=== PATIENT | male | born 1990 | race American Indian/Alaskan Native ===

== ENCOUNTER 2021-08-06 18:03 | Emergency (ER) | payer SELFPAY ==
--- NOTE | 2021-08-06 20:07 | Emergency Department Report ---
- General Chief complaint: Skin Rash Stated complaint: ABD PAIN Time Seen by Provider: 08/06/21 19:56 Source: patient Mode of arrival: Ambulatory Limitations: No Limitations - History of Present Illness Initial comments: Patient is a 31-year-old male presents emergency room with complaints of a diffuse pruritic rash that has been ongoing for several months. He reports he recently moved here from [place]. He states that he saw a manufacturing controls engineer in [place] and was advised it was tinea versicolor and states he used an ointment but it did not get better and he never followed back up. He denies any fever, chills, vomiting, diarrhea, oral involvement. He denies any recent antibiotics. No allergies to medications. - Related Data Allergies Allergy/AdvReac Type Severity Reaction Status Date / Time No Known Allergies Allergy Unverified 08/06/21 18:04 Abscess Boil HPI - HPI Chief Complaint: Skin Rash Stated Complaint: ABD PAIN Time Seen by Provider: 08/06/21 19:56 Allergies/Adverse Reactions: Allergies Allergy/AdvReac Type Severity Reaction Status Date / Time No Known Allergies Allergy Unverified 08/06/21 18:04 ED Review of Systems ROS: Stated complaint: ABD PAIN Other details as noted in HPI Comment: All other systems reviewed and negative ED Past Medical Hx - Past Medical History Additional medical history: SKIN ISSUES - Surgical History Past Surgical History?: No ED Physical Exam - General Limitations: No Limitations General appearance: alert, in no apparent distress - Head Head exam: Present: atraumatic, normocephalic - Eye Eye exam: Present: normal appearance - ENT ENT exam: Present: mucous membranes moist - Neurological Exam Neurological exam: Present: alert, oriented X3 - Psychiatric Psychiatric exam: Present: normal affect, normal mood - Skin Skin exam: Present: warm, dry, rash (hyperpigmented macules present to the back diffusely, no scaling, no erythema, no blistering, no skin denuding, no necrosis) ED Course Vital Signs 08/06/21 18:06 Temperature 97.9 F Pulse Rate 66 Respiratory 16 Rate Blood Pressure 104/74 O2 Sat by Pulse 100 Oximetry ED Medical Decision Making - Medical Decision Making Patient is a 31-year-old male presents emergency room with complaints of a diffuse pruritic rash that has been ongoing for several months. He reports he recently moved here from [place]. He states that he saw a manufacturing controls engineer in [facility] and was advised it was tinea versicolor and states he used an ointment but it did not get better and he never followed back up. He denies any fever, chills, vomiting, diarrhea, oral involvement. He denies any recent antibiotics. No allergies to medications. Vitals are normal. On exam:hyperpigmented macules present to the back diffusely, no scaling, no erythema, no blistering, no skin denuding, no necrosis. No signs of emergent skin condition. Patient be referred to primary care and dermatology for further evaluation. Patient was also requesting routine HIV testing but is not having any symptoms, advised patient he can follow-up with the clinic or the health department in order to receive HIV testing. Advised patient Please follow-up with a manufacturing controls engineer. Please follow-up with your primary care doctor. Please follow-up with a health department or clinic for HIV testing. Return to emergency room for any new or worsening symptoms Critical care attestation.: If time is entered above; I have spent that time in minutes in the direct care of this critically ill patient, excluding procedure time. ED Disposition Clinical Impression: Rash Disposition: 01 HOME / SELF CARE / HOMELESS Is pt being admited?: No Does the pt Need Aspirin: No Condition: Stable Instructions: Rash, Adult, [id number] Additional Instructions: Please follow-up with a manufacturing controls engineer. Please follow-up with your primary care doctor. Please follow-up with a health department or clinic for HIV testing. Return to emergency room for any new or worsening symptoms [facility] Address: [address] [place] [id number] Appointments: [email or web address] Referrals: RADHA MOSQUERA MD [Staff Physician] - 3-[address] [facility] [Outside] - 3-5 Days KAILA PALACIOS MD [Staff Physician] - 3-[address] [facility] [Provider Group] - 3-5 Days Time of Disposition: 20:05 Print Language: LEBANESE
[2021-08-06 20:51] VITALS: BP 110/76
== END 2021-08-06 20:00 | disposition home or self-care (01) ==
LOC: ED 18:03
DX: L29.9 Pruritus, unspecified (principal)
CPT/HCPCS: 99282